=== PATIENT | male | born 1935 | race Caucasian/White ===

== ENCOUNTER 2019-09-03 11:55 | Inpatient (IN) | payer MEDICARE, OTHER ==
[~2019-09-03] VITALS: Ht 175.3 cm; Wt 77.7 kg
[2019-09-03 12:56] LABS: Basophils # (auto) 0 10 ^3/uL (0-0.2); Eosinophils # (auto) 0.1 10 ^3/uL (0-0.8); Lymphocytes # (auto) 0.7 10 ^3/uL (0.4-5.4); Monocytes # (auto) 0.5 10 ^3/uL (0-1.3); Neutrophils # (auto) 5.3 10 ^3/uL (1.6-8.6); Red Blood Cells 3.36 10^6/uL (4.5-5.90); White Blood Cell 6.6 10^3/uL (4.4-10.8)
[2019-09-03 12:58] LABS: Basophils % (auto) 0.4 % (0.0-2.0); Eosinophils % (auto) 0.9 % (0.0-7.0); Hematocrit 24.7 % (41.0-53.0); Hemoglobin 7.8 g/dL (13.5-17.5); Mean Corpuscular Hemoglobin 23.4 pg (28.0-32.0); Mean Corpuscular Hgb Conc. 31.7 g/dL (32.0-36.0); Mean Corpuscular Volume 73.7 fL (80.0-100.0); Monocytes % (auto) 7.7 % (0.0-12.0); Nucleated Red Blood Cells % 0.3 %; Platelet Count (auto) 152 10^3/uL (140-450)
[2019-09-03 13:11] LABS: Albumin 3.2 g/dL (3.4-5.0); Calcium 8.5 mg/dL (8.5-10.1); Potassium 4.3 mmol/L (3.5-5.1)
[2019-09-03 13:15] LABS: Bilirubin, Total 0.7 mg/dL (0.2-1.0)
[2019-09-03] MEDS ORDERED: SODIUM CHLORIDE 0.9% 1,000 ML IVB ONE (13:36)
[2019-09-03 14:27] LABS: INR 1.41 (0.9-1.15); Partial Thromboplastin Time 37.8 sec (23.64-32.05)
[2019-09-03] MEDS ORDERED: PANTOPRAZOLE 40 MG/10 ML VIAL INJ IV ONE (15:00)
[2019-09-03] MEDS ORDERED: NITROGLYCERIN 0.4 MG SL TAB SL PRN (17:15)
[2019-09-03] MEDS ORDERED: MORPHINE SULF INJ 2 MG/ML SYRINGE 1ML IV PRN (17:15)
[2019-09-03] MEDS ORDERED: DOCUSATE SOD 100 MG CAP PO PRN (17:30)
[2019-09-03] MEDS ORDERED: NICOTINE 21MG/24 HR TOPICAL PATCH TD ONE (17:30)
[2019-09-03] MEDS ORDERED: dilTIAZem HCL 60 MG TAB PO ONE (18:15)
[2019-09-03] MEDS: SODIUM CHLORIDE 0.9% 1,000 ML IV SCH (18:32)
[2019-09-03 22:00] VITALS: BP 113/62
[2019-09-03] MEDS: SUCRALFATE 1 GM/10 ML ORAL SUSP GT SCH (22:14)
[2019-09-03] MEDS: PANTOPRAZOLE 40 MG/10 ML VIAL INJ IV SCH (22:14)
[2019-09-03] MEDS: METOPROLOL TARTRATE 25 MG TAB PO SCH (22:15)
[2019-09-03 22:22] VITALS: BP 99/59
[2019-09-04] VITALS (21 sets, daily range): BP systolic 91–134; BP diastolic 48–84
[2019-09-04] MEDS: ACETAMINOPHEN 500 MG TAB PO PRN (04:00)
[2019-09-04 06:25] LABS: Basophils # (auto) 0 10 ^3/uL (0-0.2); Lymphocytes # (auto) 0.9 10 ^3/uL (0.4-5.4); Monocytes # (auto) 0.4 10 ^3/uL (0-1.3); Nucleated Red Blood Cells % 0.1 %; Red Blood Cells 2.48 10^6/uL (4.5-5.90); Red Cell Distribution Width 18.9 % (11.8-14.3); White Blood Cell 5.3 10^3/uL (4.4-10.8)
[2019-09-04 06:28] LABS: Basophils % (auto) 0.4 % (0.0-2.0); Eosinophils # (auto) 0 10 ^3/uL (0-0.8); Eosinophils % (auto) 0.9 % (0.0-7.0); Hematocrit 18.3 % (41.0-53.0); Lymphocytes % (auto) 16.5 % (10.0-50.0); Mean Corpuscular Hemoglobin 23.9 pg (28.0-32.0); Mean Corpuscular Hgb Conc. 32.4 g/dL (32.0-36.0); Mean Corpuscular Volume 73.7 fL (80.0-100.0); Monocytes % (auto) 7.1 % (0.0-12.0); Neutrophils % (auto) 75.1 % (37.0-80.0); Platelet Count (auto) 119 10^3/uL (140-450)
[2019-09-04] MEDS: SUCRALFATE 1 GM/10 ML ORAL SUSP GT SCH ×4 (06:34→22:00)
[2019-09-04 06:41] LABS: Hemoglobin 5.9 g/dL (13.5-17.5)
[2019-09-04 06:42] LABS: INR 1.23 (0.9-1.15); Partial Thromboplastin Time 36.2 sec (23.64-32.05)
[2019-09-04 06:50] LABS: BUN/Creatinine Ratio 23.5; Calcium 7.7 mg/dL (8.5-10.1)
[2019-09-04] MEDS: METOPROLOL TARTRATE 25 MG TAB PO SCH ×2 (09:47→22:03)
[2019-09-04] MEDS: NICOTINE 21MG/24 HR TOPICAL PATCH TD SCH (09:48)
[2019-09-04] MEDS: PANTOPRAZOLE 40 MG/10 ML VIAL INJ IV SCH ×2 (09:49→22:00)
[2019-09-04] MEDS ORDERED: dilTIAZem HCL 180MG ER CAP PO SCH (10:00)
[2019-09-04] MEDS: SODIUM CHLORIDE 0.9% 1,000 ML IV SCH ×2 (10:10→18:59)
[2019-09-04] MEDS ORDERED: SODIUM CHLORIDE 0.9% 1,000 ML IV ONE (17:15)
[2019-09-04] MEDS ORDERED: AMIODARONE HCL 150 MG in D5W 5% 100 ML IV ONE (17:30)
[2019-09-04] MEDS ORDERED: AMIODARONE HCL 900 MG in DEXTROSE 500 ML IV SCH ×2 (17:45→23:09)
[2019-09-04 18:12] LABS: Hematocrit 24.1 % (41.0-53.0)
[2019-09-04 18:15] LABS: Hemoglobin 7.8 g/dL (13.5-17.5)
[2019-09-04 23:33] LABS: Hematocrit 20.9 % (41.0-53.0)
[2019-09-04] MEDS: AMIODARONE HCL 900 MG in DEXTROSE 500 ML IV SCH (23:45)
[2019-09-04 23:54] LABS: Hemoglobin 6.9 g/dL (13.5-17.5)
[2019-09-05] VITALS (59 sets, daily range): BP systolic 79–143; BP diastolic 26–72
[2019-09-05] MEDS: SODIUM CHLORIDE 0.9% 1,000 ML IV SCH ×2 (03:00→10:45)
[2019-09-05 06:00] LABS: Basophils # (auto) 0 10 ^3/uL (0-0.2); Basophils % (auto) 0.4 % (0.0-2.0); Eosinophils # (auto) 0.1 10 ^3/uL (0-0.8); Hematocrit 20.5 % (41.0-53.0); Lymphocytes # (auto) 0.8 10 ^3/uL (0.4-5.4); Lymphocytes % (auto) 12.4 % (10.0-50.0); Mean Corpuscular Hemoglobin 26.3 pg (28.0-32.0); Mean Corpuscular Hgb Conc. 33.1 g/dL (32.0-36.0); Mean Corpuscular Volume 79.6 fL (80.0-100.0); Monocytes # (auto) 0.6 10 ^3/uL (0-1.3); Monocytes % (auto) 9.8 % (0.0-12.0); Neutrophils # (auto) 4.7 10 ^3/uL (1.6-8.6); Neutrophils % (auto) 76.4 % (37.0-80.0); Nucleated Red Blood Cells % 0.3 %; Platelet Count (auto) 110 10^3/uL (140-450); Red Blood Cells 2.57 10^6/uL (4.5-5.90); White Blood Cell 6.2 10^3/uL (4.4-10.8)
[2019-09-05 06:02] LABS: Hemoglobin 6.8 g/dL (13.5-17.5); Red Cell Distribution Width 21.6 % (11.8-14.3)
[2019-09-05] MEDS: SUCRALFATE 1 GM/10 ML ORAL SUSP GT SCH ×4 (07:04→21:33)
[2019-09-05] MEDS: ALBUTEROL SULF 2.5 MG/0.5ML(0.5%) NEB SOLN NEB PRN ×2 (09:29→22:20)
[2019-09-05] MEDS: IPRATROPIUM BROM 0.5 MG/2.5ML INH SOL NEB PRN ×2 (09:29→22:20)
[2019-09-05 11:28] LABS: BUN/Creatinine Ratio 16.3; Calcium 7.6 mg/dL (8.5-10.1); Magnesium 2.1 mg/dL (1.6-2.6)
[2019-09-05] MEDS: NICOTINE 21MG/24 HR TOPICAL PATCH TD SCH (11:48)
[2019-09-05] MEDS: PANTOPRAZOLE 40 MG/10 ML VIAL INJ IV SCH ×2 (11:49→21:33)
[2019-09-05] MEDS: AMIODARONE HCL 900 MG in DEXTROSE 500 ML IV SCH ×2 (18:30→23:45)
[2019-09-05] MEDS: ONDANSETRON HCL 4 MG/2 ML VIAL IV PRN (19:46)
[2019-09-05] MEDS: METOPROLOL TARTRATE 25 MG TAB PO SCH (21:33)
[2019-09-05] MEDS ORDERED: METOPROLOL TARTRATE 25 MG TAB PO SCH (22:00)
[2019-09-05] MEDS: ACETAMINOPHEN 500 MG TAB PO PRN (23:26)
[2019-09-06] VITALS (59 sets, daily range): BP systolic 88–131; BP diastolic 33–83
[2019-09-06 00:07] LABS: Urine WBC None Seen /hpf (0 - 3)
[2019-09-06 00:10] LABS: Urine Bacteria NONE SEEN /hpf (None Seen); Urine Blood Negative /uL (Negative); Urine Hyaline Cast FEW /lpf (0 - 2); Urine Mucus FEW (None Seen); Urine Specific Gravity 1.017 (1.001-1.035)
[2019-09-06] MEDS: MORPHINE SULF INJ 2 MG/ML SYRINGE 1ML IV PRN (00:26)
[2019-09-06 00:39] LABS: Hematocrit 20.8 % (41.0-53.0)
[2019-09-06 00:45] LABS: Hemoglobin 6.9 g/dL (13.5-17.5)
[2019-09-06] MEDS: ONDANSETRON HCL 4 MG/2 ML VIAL IV PRN (01:20)
[2019-09-06] MEDS: SODIUM CHLORIDE 0.9% 1,000 ML IV SCH ×2 (03:00→21:35)
[2019-09-06] MEDS ORDERED: METOCLOPRAMIDE HCL 5MG/ml INJ 2ml VIAL ONE (03:38)
[2019-09-06] MEDS ORDERED: METOCLOPRAMIDE HCL 5MG/ml INJ 2ml VIAL IV PRN (03:45)
[2019-09-06] MEDS: SUCRALFATE 1 GM/10 ML ORAL SUSP GT SCH ×4 (07:00→20:42)
[2019-09-06 07:24] LABS: Basophils # (auto) 0 10 ^3/uL (0-0.2); Eosinophils # (auto) 0 10 ^3/uL (0-0.8); Eosinophils % (auto) 0.1 % (0.0-7.0); Hemoglobin 7.5 g/dL (13.5-17.5); Lymphocytes # (auto) 0.3 10 ^3/uL (0.4-5.4); Mean Corpuscular Hemoglobin 27.8 pg (28.0-32.0); Neutrophils # (auto) 5.9 10 ^3/uL (1.6-8.6); Nucleated Red Blood Cells % 0.6 %
[2019-09-06 07:25] LABS: Basophils % (auto) 0.3 % (0.0-2.0); Hematocrit 22.7 % (41.0-53.0); Lymphocytes % (auto) 4.4 % (10.0-50.0); Mean Corpuscular Hgb Conc. 33.1 g/dL (32.0-36.0); Monocytes # (auto) 0.6 10 ^3/uL (0-1.3); Monocytes % (auto) 8.1 % (0.0-12.0); Neutrophils % (auto) 87.1 % (37.0-80.0); Platelet Count (auto) 84 10^3/uL (140-450); White Blood Cell 6.8 10^3/uL (4.4-10.8)
[2019-09-06 07:26] LABS: Red Cell Distribution Width 21.5 % (11.8-14.3)
[2019-09-06 07:41] LABS: BUN/Creatinine Ratio 18.7; Calcium 7.4 mg/dL (8.5-10.1); Magnesium 1.6 mg/dL (1.6-2.6); Potassium 3.7 mmol/L (3.5-5.1)
[2019-09-06 09:21] LABS: INR 1.11 (0.9-1.15); Partial Thromboplastin Time 28.3 sec (23.64-32.05)
[2019-09-06] MEDS: PANTOPRAZOLE 40 MG/10 ML VIAL INJ IV SCH ×2 (09:29→20:42)
[2019-09-06] MEDS: NICOTINE 21MG/24 HR TOPICAL PATCH TD SCH (09:30)
[2019-09-06] MEDS: dilTIAZem HCL 180MG ER CAP PO SCH (09:30)
[2019-09-06] MEDS: METOPROLOL TARTRATE 25 MG TAB PO SCH ×2 (09:31→20:35)
[2019-09-06] MEDS: ACETAMINOPHEN 500 MG TAB PO PRN ×2 (12:02→22:56)
[2019-09-06] MEDS ORDERED: DABI150C5 PO (12:26)
[2019-09-06] MEDS ORDERED: TAM04C PO (12:26)
[2019-09-06] MEDS ORDERED: MET25T PO (12:26)
[2019-09-06] MEDS ORDERED: TIOTCAP IN (12:26)
[2019-09-06] MEDS ORDERED: DILT120C12 PO (12:26)
[2019-09-06] MEDS ORDERED: CETI10CH PO (12:26)
[2019-09-06] MEDS ORDERED: PANT40TA2 PO (12:26)
[2019-09-06 14:10] LABS: Hematocrit 23.8 % (41.0-53.0); Hemoglobin 8.3 g/dL (13.5-17.5)
[2019-09-06] MEDS: AMIODARONE HCL 900 MG in DEXTROSE 500 ML IV SCH (16:57)
[2019-09-06] MEDS: IPRATROPIUM BROM 0.5 MG/2.5ML INH SOL NEB PRN (17:56)
[2019-09-06] MEDS: ALBUTEROL SULF 2.5 MG/0.5ML(0.5%) NEB SOLN NEB PRN (17:56)
[2019-09-07] VITALS (7 sets, daily range): BP systolic 103–121; BP diastolic 45–79
[2019-09-07] MEDS: MORPHINE SULF INJ 2 MG/ML SYRINGE 1ML IV PRN (04:37)
[2019-09-07] MEDS: SUCRALFATE 1 GM/10 ML ORAL SUSP GT SCH ×2 (05:13→11:30)
[2019-09-07 06:17] LABS: Basophils # (auto) 0 10 ^3/uL (0-0.2); Basophils % (auto) 0.2 % (0.0-2.0); Eosinophils # (auto) 0 10 ^3/uL (0-0.8); Eosinophils % (auto) 0.3 % (0.0-7.0); Hematocrit 24.3 % (41.0-53.0); Hemoglobin 8.1 g/dL (13.5-17.5); Lymphocytes # (auto) 0.4 10 ^3/uL (0.4-5.4); Lymphocytes % (auto) 6.3 % (10.0-50.0); Mean Corpuscular Hemoglobin 28.4 pg (28.0-32.0); Mean Corpuscular Hgb Conc. 33.3 g/dL (32.0-36.0); Mean Corpuscular Volume 85.1 fL (80.0-100.0); Monocytes # (auto) 0.6 10 ^3/uL (0-1.3); Monocytes % (auto) 8.6 % (0.0-12.0); Neutrophils # (auto) 5.8 10 ^3/uL (1.6-8.6); Neutrophils % (auto) 84.6 % (37.0-80.0); Nucleated Red Blood Cells % 1.1 %; Platelet Count (auto) 92 10^3/uL (140-450); Red Blood Cells 2.86 10^6/uL (4.5-5.90); White Blood Cell 6.9 10^3/uL (4.4-10.8)
[2019-09-07 06:19] LABS: Red Cell Distribution Width 20.8 % (11.8-14.3)
[2019-09-07 06:37] LABS: Calcium 8.1 mg/dL (8.5-10.1); Potassium 3.4 mmol/L (3.5-5.1)
[2019-09-07 06:39] LABS: BUN/Creatinine Ratio 11.9
[2019-09-07] MEDS ORDERED: POTASSIUM CHLORIDE 20 MEQ, LIDOCAINE 1% (LOCAL ANESTH.) 2 ML in SODIUM CHL 0.9% 100 ML IV ONE (07:45)
[2019-09-07] MEDS: ACETAMINOPHEN 500 MG TAB PO PRN (08:22)
[2019-09-07] MEDS: METOPROLOL TARTRATE 25 MG TAB PO SCH ×2 (10:01→22:00)
[2019-09-07] MEDS: NICOTINE 21MG/24 HR TOPICAL PATCH TD SCH (10:02)
[2019-09-07] MEDS: dilTIAZem HCL 180MG ER CAP PO SCH (10:02)
[2019-09-07] MEDS: PANTOPRAZOLE 40 MG/10 ML VIAL INJ IV SCH ×2 (10:02→22:14)
[2019-09-07] MEDS ORDERED: LIDOCAINE VISCOUS 2% 15ML UD ONE (11:10)
[2019-09-07] MEDS ORDERED: SODIUM CHLORIDE LOCK 10 ML ONE (11:10)
[2019-09-07] MEDS ORDERED: MIDAZOLAM HCL 5 MG/ML-1ML VIAL ONE (11:11)
[2019-09-07] MEDS ORDERED: diphenhdrAMINE HCL 50 MG/1 ML VL ONE (11:11)
[2019-09-07] MEDS: ONDANSETRON HCL 4 MG/2 ML VIAL IV PRN ×2 (12:50→22:14)
[2019-09-07] MEDS: fentaNYL CITRATE 100 MCG/2 ML VL ONE ×2 (14:57→15:00)
[2019-09-07] MEDS ORDERED: GOLYTELY 4L KIT PO ONE (15:15)
[2019-09-07] MEDS: SODIUM CHLORIDE 0.9% 1,000 ML IV SCH (22:15)
[2019-09-07] MEDS: AMIODARONE HCL 900 MG in DEXTROSE 500 ML IV SCH (23:53)
[2019-09-08 05:00] VITALS: BP 130/90
[2019-09-08] MEDS ORDERED: GOLYTELY 4L KIT PO ONE (06:00)
[2019-09-08] MEDS ORDERED: MAGNESIUM CITRATE SOLUTION 300 ML BTL PO ONE (06:00)
[2019-09-08] MEDS ORDERED: SODIUM CHLORIDE LOCK 10 ML ONE (08:07)
[2019-09-08] MEDS ORDERED: diphenhdrAMINE HCL 50 MG/1 ML VL ONE (08:08)
[2019-09-08 08:51] VITALS: BP 120/68
[2019-09-08 10:29] LABS: Basophils # (auto) 0 10 ^3/uL (0-0.2); Basophils % (auto) 0.3 % (0.0-2.0); Eosinophils # (auto) 0 10 ^3/uL (0-0.8); Eosinophils % (auto) 0.2 % (0.0-7.0); Hematocrit 26.2 % (41.0-53.0); Hemoglobin 8.7 g/dL (13.5-17.5); Lymphocytes # (auto) 0.5 10 ^3/uL (0.4-5.4); Lymphocytes % (auto) 5.2 % (10.0-50.0); Mean Corpuscular Hemoglobin 28.3 pg (28.0-32.0); Mean Corpuscular Hgb Conc. 33.3 g/dL (32.0-36.0); Monocytes # (auto) 0.7 10 ^3/uL (0-1.3); Monocytes % (auto) 7.9 % (0.0-12.0); Neutrophils # (auto) 7.8 10 ^3/uL (1.6-8.6); Neutrophils % (auto) 86.4 % (37.0-80.0); Nucleated Red Blood Cells % 0.6 %; Platelet Count (auto) 92 10^3/uL (140-450); Red Blood Cells 3.08 10^6/uL (4.5-5.90); White Blood Cell 9.1 10^3/uL (4.4-10.8)
[2019-09-08 10:32] LABS: Red Cell Distribution Width 21.1 % (11.8-14.3)
[2019-09-08 10:41] LABS: Potassium 3.2 mmol/L (3.5-5.1)
[2019-09-08 10:44] LABS: BUN/Creatinine Ratio 9.7
[2019-09-08 10:50] LABS: INR 1.07 (0.9-1.15); Partial Thromboplastin Time 34.5 sec (23.64-32.05)
[2019-09-08] MEDS: PANTOPRAZOLE 40 MG/10 ML VIAL INJ IV SCH ×2 (10:52→23:30)
[2019-09-08] MEDS: dilTIAZem HCL 180MG ER CAP PO SCH (10:52)
[2019-09-08] MEDS: NICOTINE 21MG/24 HR TOPICAL PATCH TD SCH (10:55)
[2019-09-08] MEDS: METOPROLOL TARTRATE 25 MG TAB PO SCH ×2 (10:56→22:00)
[2019-09-08] MEDS: ALBUTEROL SULF 2.5 MG/0.5ML(0.5%) NEB SOLN NEB PRN (11:00)
[2019-09-08] MEDS: IPRATROPIUM BROM 0.5 MG/2.5ML INH SOL NEB PRN (11:00)
[2019-09-08] MEDS: fentaNYL CITRATE 100 MCG/2 ML VL ONE ×2 (12:31→12:36)
[2019-09-08] MEDS: MIDAZOLAM HCL 5 MG/ML-1ML VIAL ONE ×2 (12:31→12:35)
[2019-09-08 12:49] VITALS: BP 104/65
[2019-09-08] MEDS ORDERED: CLINIMIX PER PHARMACY 0 ML IV SCH (13:00)
[2019-09-08] MEDS ORDERED: POTASSIUM CHLORIDE 20 MEQ, LIDOCAINE 1% (LOCAL ANESTH.) 2 ML in SODIUM CHL 0.9% 100 ML IV ONE (14:15)
[2019-09-08 17:32] VITALS: BP 80/49
[2019-09-08 17:50] VITALS: BP 95/45
[2019-09-08] MEDS: SODIUM CHLORIDE 0.9% 1,000 ML IV SCH (19:28)
[2019-09-08 19:53] LABS: Hemoglobin 8.1 g/dL (13.5-17.5)
[2019-09-08 19:55] LABS: Hematocrit 24.5 % (41.0-53.0)
[2019-09-08] MEDS: AMINO ACID INFUSION IN D5W 1,000 ML IV NR (20:39)
[2019-09-08 21:59] VITALS: BP 102/71
[2019-09-09] VITALS (7 sets, daily range): BP systolic 101–121; BP diastolic 52–60
[2019-09-09] MEDS ORDERED: DEXTROSE (50%) 50ML SYRG IV SCH
[2019-09-09] MEDS: ACCU-CHEK COMFORT CURVE STRIP VI SCH ×3 (00:51→11:38)
[2019-09-09] MEDS: AMIODARONE HCL 900 MG in DEXTROSE 500 ML IV SCH (00:51)
[2019-09-09] MEDS: MORPHINE SULF INJ 2 MG/ML SYRINGE 1ML IV PRN ×3 (04:44→23:00)
[2019-09-09] MEDS: InsuLIN REG 1unit/0.01ml Soln (100units/ml) SC SCH ×3 (06:00→11:38)
[2019-09-09 06:35] LABS: Basophils # (auto) 0 10 ^3/uL (0-0.2); Eosinophils # (auto) 0 10 ^3/uL (0-0.8); Lymphocytes # (auto) 0.4 10 ^3/uL (0.4-5.4); Mean Corpuscular Hemoglobin 28.4 pg (28.0-32.0); Monocytes # (auto) 0.7 10 ^3/uL (0-1.3); Neutrophils # (auto) 6.5 10 ^3/uL (1.6-8.6); White Blood Cell 7.6 10^3/uL (4.4-10.8)
[2019-09-09 06:38] LABS: Basophils % (auto) 0.1 % (0.0-2.0); Eosinophils % (auto) 0.5 % (0.0-7.0); Hematocrit 23.9 % (41.0-53.0); Lymphocytes % (auto) 5.4 % (10.0-50.0); Mean Corpuscular Hgb Conc. 33.4 g/dL (32.0-36.0); Mean Corpuscular Volume 84.9 fL (80.0-100.0); Nucleated Red Blood Cells % 0.4 %; Platelet Count (auto) 88 10^3/uL (140-450); Red Blood Cells 2.82 10^6/uL (4.5-5.90)
[2019-09-09 06:40] LABS: Red Cell Distribution Width 21.5 % (11.8-14.3)
[2019-09-09 06:48] LABS: Albumin 2.3 g/dL (3.4-5.0); Calcium 7.7 mg/dL (8.5-10.1); Magnesium 2.1 mg/dL (1.6-2.6); Potassium 3.1 mmol/L (3.5-5.1)
[2019-09-09 06:55] LABS: BUN/Creatinine Ratio 9.7; Bilirubin, Total 1.1 mg/dL (0.2-1.0); Phosphorus 1.7 mg/dL (2.5-4.90); Pre Albumin 8.4 mg/dL (20.0-40.0); Total Protein 4.7 g/dL (6.4-8.2)
[2019-09-09] MEDS: METOPROLOL TARTRATE 25 MG TAB PO SCH ×3 (09:21→22:34)
[2019-09-09] MEDS: NICOTINE 21MG/24 HR TOPICAL PATCH TD SCH (09:28)
[2019-09-09] MEDS: PANTOPRAZOLE 40 MG/10 ML VIAL INJ IV SCH ×2 (09:29→22:30)
[2019-09-09] MEDS: dilTIAZem HCL 180MG ER CAP PO SCH (09:29)
[2019-09-09] MEDS ORDERED: NS IV ONE (10:00)
[2019-09-09] MEDS ORDERED: POTASSIUM PHOSP IV ONE (10:00)
[2019-09-09 11:53] LABS: Hematocrit 23.6 % (41.0-53.0)
[2019-09-09] MEDS ORDERED: AMIODARONE HCL 200 MG TAB PO ONE (13:00)
[2019-09-09] MEDS: SODIUM CHLORIDE 0.9% 1,000 ML IV SCH ×2 (14:18→16:49)
[2019-09-09] MEDS: AMINO ACID INFUSION IN D5W 1,000 ML IV NR (19:49)
[2019-09-09] MEDS ORDERED: AMINO ACID INFUSION IN D5W 1,000 ML IV NR (20:00)
[2019-09-09] MEDS: IPRATROPIUM BROM 0.5 MG/2.5ML INH SOL NEB PRN (22:49)
[2019-09-09] MEDS: ALBUTEROL SULF 2.5 MG/0.5ML(0.5%) NEB SOLN NEB PRN (22:49)
[2019-09-10] MEDS: MORPHINE SULF INJ 2 MG/ML SYRINGE 1ML IV PRN (03:00)
[2019-09-10] MEDS: ACETAMINOPHEN 500 MG TAB PO PRN ×2 (03:00→12:10)
[2019-09-10] MEDS ORDERED: ENOXAPARIN SOD 100 MG/1 ML SYRINGE SC SCH (04:00)
[2019-09-10 05:00] VITALS: BP 126/60
[2019-09-10 05:36] LABS: Basophils # (auto) 0 10 ^3/uL (0-0.2); Eosinophils # (auto) 0 10 ^3/uL (0-0.8); Hematocrit 24.7 % (41.0-53.0); Neutrophils # (auto) 5.9 10 ^3/uL (1.6-8.6)
[2019-09-10 05:39] LABS: Basophils % (auto) 0.3 % (0.0-2.0); Eosinophils % (auto) 0.3 % (0.0-7.0); Hemoglobin 8.2 g/dL (13.5-17.5); Lymphocytes # (auto) 0.3 10 ^3/uL (0.4-5.4); Lymphocytes % (auto) 4.8 % (10.0-50.0); Mean Corpuscular Hgb Conc. 33.1 g/dL (32.0-36.0); Mean Corpuscular Volume 84.6 fL (80.0-100.0); Monocytes # (auto) 0.6 10 ^3/uL (0-1.3); Neutrophils % (auto) 85.6 % (37.0-80.0); Nucleated Red Blood Cells % 0.2 %; Platelet Count (auto) 87 10^3/uL (140-450); Red Blood Cells 2.92 10^6/uL (4.5-5.90); White Blood Cell 6.9 10^3/uL (4.4-10.8)
[2019-09-10 06:06] LABS: Albumin 2.2 g/dL (3.4-5.0); BUN/Creatinine Ratio 12.1; Bilirubin, Total 1.2 mg/dL (0.2-1.0); Calcium 7.8 mg/dL (8.5-10.1); Magnesium 1.9 mg/dL (1.6-2.6); Phosphorus 2.1 mg/dL (2.5-4.90); Total Protein 4.7 g/dL (6.4-8.2)
[2019-09-10 06:10] LABS: Potassium 2.9 mmol/L (3.5-5.1)
[2019-09-10 06:13] LABS: Red Cell Distribution Width 20.6 % (11.8-14.3)
[2019-09-10] MEDS ORDERED: POTASSIUM CHL 20 Meq TABLET PO ONE (07:15)
[2019-09-10 09:00] VITALS: BP 119/74
[2019-09-10] MEDS: METOPROLOL TARTRATE 25 MG TAB PO SCH (10:00)
[2019-09-10] MEDS ORDERED: AMIODARONE HCL 200 MG TAB PO SCH (10:00)
[2019-09-10] MEDS: PANTOPRAZOLE 40 MG/10 ML VIAL INJ IV SCH ×2 (10:00→10:38)
[2019-09-10] MEDS ORDERED: ENOXAPARIN SOD 80 MG/0.8ML SYRINGE SC SCH (10:00)
[2019-09-10] MEDS: dilTIAZem HCL 180MG ER CAP PO SCH (10:39)
[2019-09-10] MEDS: NICOTINE 21MG/24 HR TOPICAL PATCH TD SCH (10:40)
[2019-09-10 13:00] VITALS: BP 97/55
== END 2019-09-10 16:33 | disposition home or self-care (01) | DRG 378 ==
LOC: EDBD 11:55 → ER 11:55 → TELE 11:56 → TELE-WESTW 19:42 → DOU IN ICU 09-04 17:15 → TELE-CENTR 09-07 10:43
PROVIDERS: ADMIT Nurse Practitioner Acute Care; ATTEND Family Medicine
PROC: 30233N1 Transfusion of Nonautologous Red Blood Cells into Peripheral Vein, Percutaneous Approach (ICD-10-PCS; principal; 2019-09-04)
PROC: 30233K1 Transfusion of Nonautologous Frozen Plasma into Peripheral Vein, Percutaneous Approach (ICD-10-PCS; 2019-09-05)
PROC: 0DB68ZX Excision of Stomach, Via Natural or Artificial Opening Endoscopic, Diagnostic (ICD-10-PCS; 2019-09-07)
PROC: 0DB88ZX Excision of Small Intestine, Via Natural or Artificial Opening Endoscopic, Diagnostic (ICD-10-PCS; 2019-09-07)
PROC: 0DBN8ZZ Excision of Sigmoid Colon, Via Natural or Artificial Opening Endoscopic (ICD-10-PCS; 2019-09-08)
DX: K57.31 Diverticulosis of large intestine without perforation or abscess with bleeding (principal); D62 Acute posthemorrhagic anemia; E44.1 Mild protein-calorie malnutrition; I82.611 Acute embolism and thrombosis of superficial veins of right upper extremity; K29.70 Gastritis, unspecified, without bleeding; J44.9 Chronic obstructive pulmonary disease, unspecified; I48.91 Unspecified atrial fibrillation; I10 Essential (primary) hypertension; K44.9 Diaphragmatic hernia without obstruction or gangrene; K64.8 Other hemorrhoids; E78.00 Pure hypercholesterolemia, unspecified; Z79.01 Long term (current) use of anticoagulants; Z79.899 Other long term (current) drug therapy; Z68.30 Body mass index [BMI] 30.0-30.9, adult; Z86.73 Personal history of transient ischemic attack (TIA), and cerebral infarction without residual deficits
CPT/HCPCS: 36415; 43239; 45380; 71045; 74176; 80048; 80053; 81001; 82040; 82150; 82270; 82962; 83735; 83880; 84100; 84443; 84478; 85014; 85018; 85025; 85610; 85730; 86850; 86900; 86901; 86920; 87081; 93306; 93886; 93970; 94640; C9113; G0378; J2001; J2250; J2405; J7060

== ENCOUNTER → 2019-09-16 | Outpatient (CLI) | payer MEDICARE ==
[~2019-09-16] MED LIST: CETI10CH PO; DABI150C5 PO; DILT120C12 PO; MET25T PO; PANT40TA2 PO; TAM04C PO; TIOTCAP IN
[2019-09-16 15:54] LABS: Basophils # (auto) 0 10 ^3/uL (0-0.2); Basophils % (auto) 0.8 % (0.0-2.0); Eosinophils # (auto) 0.2 10 ^3/uL (0-0.8); Eosinophils % (auto) 3.4 % (0.0-7.0); Hematocrit 26.4 % (41.0-53.0); Hemoglobin 8.7 g/dL (13.5-17.5); Lymphocytes # (auto) 0.8 10 ^3/uL (0.4-5.4); Lymphocytes % (auto) 14.6 % (10.0-50.0); Mean Corpuscular Hemoglobin 27.2 pg (28.0-32.0); Mean Corpuscular Volume 82.5 fL (80.0-100.0); Monocytes # (auto) 0.6 10 ^3/uL (0-1.3); Monocytes % (auto) 9.9 % (0.0-12.0); Neutrophils % (auto) 71.3 % (37.0-80.0); Nucleated Red Blood Cells % 0.2 %; Platelet Count (auto) 139 10^3/uL (140-450); Red Blood Cells 3.19 10^6/uL (4.5-5.90); Red Cell Distribution Width 21.6 % (11.8-14.3); White Blood Cell 5.7 10^3/uL (4.4-10.8)
[2019-09-16 16:08] LABS: Albumin 2.8 g/dL (3.4-5.0); BUN/Creatinine Ratio 7.8; Calcium 8.2 mg/dL (8.5-10.1); Potassium 3.7 mmol/L (3.5-5.1)
[2019-09-16 16:11] LABS: Bilirubin, Total 0.5 mg/dL (0.2-1.0); Total Protein 5.9 g/dL (6.4-8.2)
== END | disposition home or self-care (01) ==
LOC: LAB 11:04
PROVIDERS: ATTEND Internal Medicine
DX: I10 Essential (primary) hypertension (principal); D64.9 Anemia, unspecified
CPT/HCPCS: 36415; 80053; 85025